=== PATIENT | male | born 1950 | race Caucasian/White ===

== ENCOUNTER 2017-01-09 06:55 | Day surgery (SDC) | payer MEDICARE ==
[~2017-01-09 06:55] MED LIST: Buffered Lidocaine 0.9% SYRIN* 5 ML/SYR SYRINGE INTRADERM ONE; Bupivacaine 0.5% W/EPI SDV* 10 ML VIAL INJ ONE; Dexamethasone IV* 4 MG/ML 1 ML (4 MG) IV SLOW PU ONE; EPINEPHrine AMP 1 MG/ML ONE; Famotidine IV* 10 MG/ML 2 ML (20 mg) IV ONE; Sodium Citrate/Citric Acid* 15 ML UDC PO ONE
[2017-01-09] MEDS ORDERED: Buffered Lidocaine 0.9% SYRIN* 5 ML/SYR SYRINGE ONE (07:16)
[2017-01-09] MEDS ORDERED: ceFAZolin 2 GM PREMIX (*) 50 ML IVPB ONE (07:16)
[2017-01-09] MEDS ORDERED: Sodium Citrate/Citric Acid* 15 ML UDC ONE (07:16)
[2017-01-09] MEDS ORDERED: Midazolam* 1 MG/ML 2 ML VIAL (2 MG) ONE (08:07)
[2017-01-09] MEDS ORDERED: fentaNYL* 50 MCG/ML 2 ML VIAL (100 MCG VIAL) ONE ×2 (08:07→10:58)
[2017-01-09] MEDS ORDERED: ROPIVACAINE 5 MG/ML 30 ML BTL (0.5%) ONE (08:08)
[2017-01-09] MEDS ORDERED: Dexamethasone IV* 4 MG/ML 1 ML (4 MG) ONE (09:27)
[2017-01-09] MEDS ORDERED: Propofol* 10 MG/ML 20 ML BTL IV PUSH ONE (09:27)
[2017-01-09] MEDS ORDERED: Lidocaine 2% PF * 5 ML VIAL ONE (09:27)
[2017-01-09] MEDS ORDERED: fentaNYL* 50 MCG/ML 2 ML VIAL (100 MCG VIAL) IV PRN (10:10)
[2017-01-09] MEDS ORDERED: Ketorolac INJ* 30 MG/ML 1 ML VIAL IV PRN (10:10)
[2017-01-09] MEDS ORDERED: Ondansetron INJ* 2 MG/ML VIAL IV PRN (10:10)
[2017-01-09] MEDS ORDERED: Bupivacaine 0.5% W/EPI SDV* 30 ML VIAL ONE (11:22)
[2017-01-09 13:26] VITALS: BP 123/74
--- NOTE | 2017-01-12 07:04 | OP ---
DATE OF OPERATION: 01/09/17 - [facility] DATE OF : 50 SURGEON: Kolby Whittington MD FARE ENFORCEMENT OFFICER: ZARA Bahena. A physician liaison inspection laboratory assistant was required during the length of the procedure for help with instrumentation and retraction. ANESTHESIOLOGIST: Francis Espinosa DO ANESTHESIA: General anesthesia, regional anesthesia. PRE-OP DIAGNOSES: 1. Left shoulder likely partial thickness undersurface rotator cuff tendon tear , supraspinatus. 2. Left shoulder acromioclavicular joint arthritis. 3. Left shoulder subacromial impingement and lateral acromial spur. 4. Likely left shoulder proximal biceps tendinosis. 5. Left shoulder capsulitis, stiffness. POST-OP DIAGNOSES: 1. Left shoulder rotator cuff tendon tear, high grade, partial thickness, underside, supraspinatus. 2. Left shoulder acromioclavicular joint arthritis. 3. Left shoulder subacromial impingement and lateral acromial spur. 4. Left shoulder tendinosis of the proximal biceps at its anchor with a superior labral tear. 5. Left shoulder capsulitis, stiffness. OPERATIVE PROCEDURE: 1. Left shoulder manipulation under anesthesia. 2. Left shoulder arthroscopic rotator cuff tendon repair, supraspinatus. 3. Left shoulder arthroscopic subacromial decompression. 4. Left shoulder arthroscopic distal clavicle resection. 5. Left shoulder limited debridement including release of biceps tendon and debridement of rotator interval tissue. 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 Jc, partner of [facility], for bilateral shoulder pain, which he had been experiencing for 15 months prior to this procedure with worsening of 8 months since April of 2016. There was no clear trigger. Left shoulder was worse than right. The patient was refractory to nonoperative management as described in detail in my history and physical. The patient in fact has been out of work due to symptoms. The patient was therefore interested in surgery and we pursued it. Imaging showed signal change likely consistent with an undersurface partial thickness tear in the supraspinatus. See preoperative H and P for full description of findings. ANTIBIOTICS: Ancef 2 g IV. IV FLUIDS: 1100 cc crystalloids. COMPLICATIONS: None. SPECIMEN: None. IMPLANTS: Healix 5.5-mm triple-loaded rotator cuff tendon anchor from [employer]. DESCRIPTION OF PROCEDURE: Preoperative written consent was obtained. Risks and potential complications described including bleeding, infection, nerve or blood vessel injury, persistent shoulder pain, hardware complications. Operative extremity was marked in preoperative holding. The patient was taken back to the operating room. Dr. Espinosa performed a regional anesthetic block, interscalene, left. The patient was intubated. The patient was then placed in the lateral decubitus position with left side up. Left upper extremity was placed in 15 pounds of traction. Shoulder was angulated approximately 35 degrees of abduction and 15 degrees of forward flexion. Hidalgo bag was insufflated. All bony prominences were padded and an axillary roll was placed. Prior to the placement of the patient in the lateral decubitus position, with him supine, we first performed a mini time-out was performed. I then proceeded to do an examination under anesthesia. This demonstrated some significant limitation of range of motion. The patient had 150 to 160 degrees of forward flexion. I nearly manipulated the shoulder, felt a pop and got him to almost to 180 degrees of forward flexion. External and internal rotation with the shoulder abducted were both increased approximately 10 degrees, although there was not the same palpable crepitus obtained with those motions. After manipulation under anesthesia had been performed, the patient was then placed in lateral decubitus position as mentioned above. The left shoulder was then prepped and draped. Surgical time-out was performed. The left glenohumeral joint was entered from posterior with a spinal needle and 25 cc of normal saline was infused. I then made a posterior glenohumeral joint portal using standard technique. Diagnostic arthroscopy was commenced. There was some blood in the joint, consistent with manipulation under anesthesia. No unstable cartilage visualized. I made an anterior glenohumeral joint portal under direct visualization and I introduced a shaver. I used the shaver to debride any blood in the joint and improve visualization. I then re-commenced the diagnostic arthroscopy. Evaluating the rotator cuff, there was a clear amount of visualized footprint of the supraspinatus about its mid point from anterior to posterior. I used a 5-mm probe to measure the exposed footprint and I measured at least 6 mm of bare footprint indicating an over 50% tear. Perhaps more importantly though, I entered a spinal tissue from superolateral through the remaining fibers on the bursal side present in this location of partial thickness tear of the rotator cuff. The remaining fibers by feel were incredibly weak, hence indicating a poor quality of tissue and thin tissue. At that point, I decided that I would do a rotator cuff repair. We looked around the rest of the joint. I debrided some thickened tissue in the rotator interval which allowed for better visualization of subscapularis. There was no tear of the subscapularis. There was much frayed tissue about the biceps anchor and superior labral tear with some abnormal lift off to it. Therefore, I made the decision to cut the proximal biceps and I did that with scissors and Bovie electrocautery. No loose bodies in the joint. I had left a spinal needle through the partial thickness tear in the supraspinatus. I next exited the joint and removed fluids and instruments except for that spinal needle. I entered the subacromial space from posterior and anterior. I placed a 7-mm plastic trocar from [employer] through the anterior portal in through my anterior skin incision into the subacromial space. Irrigation was hooked up anteriorly. I next placed a lateral subacromial portal under direct visualization, mid lateral. I encountered bursitis in the subacromial space and used the arthroscopic shaver to debride it allowing for excellent visualization of the cuff and full subacromial space. There are visualizable spurs of the acromion at about the AC joint. I used a probe to probe the area of weakness of the rotator cuff where the marking spinal needle was placed. The probe practically fell through the tissue as it was weak. I then used an arthroscopic shaver to punch through that tissue and fully define the rotator cuff tear. I used a bur to debride the footprint to prepare a healing surface. I used a grasper to confirm that the rotator cuff could be brought to bone. I created a posterolateral portal and an anterolateral portal that I worked through as well. I did much of my visualization from the posterolateral portal. Through the posterolateral and lateral subacromial portals, I was able to get excellent visualization of the rotator cuff tendon tear, small and crescent shaped, and the uncovered footprint. I next moved my scope to the posterior and performed a subacromial decompression using arthroscopic bur through the lateral subacromial portal. I removed perhaps 6 mm of undersurface of the acromion to its hook component. I then created a superolateral subacromial portal and placed a triple-loaded suture anchor through it into the central part of the rotator cuff footprint from medial to lateral. I then placed a plastic cannula through this portal through the skin. I then placed 3 horizontal mattress stitches using a [employer] suture passer to pass the sutures and then I tied those knots. I then evaluated my repair, using an arthroscopic bur then removing the humerus. The repair looked very stable. I was happy with it. I then proceeded to perform a distal clavicle resection removing approximately 8 mm of the distal clavicle and visualizing well all 4 quadrants of the the distal clavicle. I did this mostly with a bur through the anterior portal. All instruments and fluids were removed from the subacromial space. The skin incisions were closed with figure-of-8 stitches using nylon 4-0 suture. Xeroform, 4x4's, ABD's, foam tape, cooling unit, sling with abduction pillow. The patient was awakened and transferred to the PACU. DISPOSITION: The patient will receive Percocet pain medication postoperatively and aspirin DVT prophylaxis. He will follow up with me in approximately 2 weeks postoperatively for a wound check. As the patient had a stiff shoulder preoperatively, I will send him to start physical therapy immediately before his first clinic visit with me to get the shoulder moving and prevent reaccumulation of stiffness. [id number] #: [id number] RODERICK
== END 2017-01-09 13:20 | disposition home or self-care (01) ==
LOC: OR 06:55
PROVIDERS: ATTEND Orthopaedic Surgery
DX: M75.112 Incomplete rotator cuff tear or rupture of left shoulder, not specified as traumatic (principal); M19.012 Primary osteoarthritis, left shoulder; M25.812 Other specified joint disorders, left shoulder; M75.52 Bursitis of left shoulder; M75.22 Bicipital tendinitis, left shoulder; M75.82 Other shoulder lesions, left shoulder; M75.02 Adhesive capsulitis of left shoulder; M25.612 Stiffness of left shoulder, not elsewhere classified; Z85.038 Personal history of other malignant neoplasm of large intestine; F17.220 Nicotine dependence, chewing tobacco, uncomplicated; S46.012A Strain of muscle(s) and tendon(s) of the rotator cuff of left shoulder, initial encounter; X58.XXXA Exposure to other specified factors, initial encounter; Y92.9 Unspecified place or not applicable; F17.210 Nicotine dependence, cigarettes, uncomplicated; G89.18 Other acute postprocedural pain
CPT/HCPCS: A9270-GY; J0171; J0690; J1100; J2250; J2704; J2795; J3010